=== PATIENT | male | born 1960 | race Caucasian/White ===

== ENCOUNTER → 2017-02-06 | Outpatient (CLI) | payer OTHER ==
[~2017-02-06] MED LIST: OMNIPAQUE 350 MG/ML, 100ML BOTTLE ONE
== END | disposition home or self-care (01) ==
LOC: CFH 13:53
PROVIDERS: ATTEND Physician Assistant Medical
DX: R22.1 Localized swelling, mass and lump, neck (principal)
CPT/HCPCS: 70491; 82565; Q9967

== ENCOUNTER 2020-04-07 05:32 | Outpatient (CLI) | payer OTHER ==
[2020-04-05 09:29] VITALS: BP 128/94
[2020-04-05 09:45] LABS: ALANINE AMINOTRANSFERASE 39 U/L (12-78); ALBUMIN 4.4 g/dL (3.4-5.0); ANION GAP 7 mmol/L (5-15); CHLORIDE 105 mmol/L (98-107); CREATININE 1.02 mg/dL (0.7-1.3)
[2020-04-05 09:48] LABS: ALKALINE PHOSPHATASE 60 U/L (45-117); BILIRUBIN,TOTAL 0.9 mg/dL (0.2-1.0); TOTAL PROTEIN 7.9 g/dL (6.4-8.2)
[~2020-04-07] VITALS: Ht 182.9 cm; Wt 109.0 kg
[~2020-04-07 05:32] MED LIST changes: +LOSA1TAB22 PO; -OMNIPAQUE 350 MG/ML, 100ML BOTTLE ONE
[2020-04-07] MEDS ORDERED: LACTATED RINGERS 1,000 ML IV SCH (06:34)
[2020-04-07] MEDS ORDERED: BUPIVACAINE/PF-EPI 0.5% 1:200K ONE (06:34)
[2020-04-07] MEDS ORDERED: CHLORHEXIDINE 15 ML UDC MM ONE (07:00)
[2020-04-07 07:04] VITALS: BP 128/94
[2020-04-07] MEDS ORDERED: BUPIVACAINE/PF 0.5% ONE (07:57)
== END 2020-04-07 23:59 | disposition home or self-care (01) ==
LOC: OUT 05:32 → EDSTATUS 07:30 → OUT 09:45
PROVIDERS: ATTEND Surgery
DX: R59.1 Generalized enlarged lymph nodes (principal); Z11.59 Encounter for screening for other viral diseases; Z53.8 Procedure and treatment not carried out for other reasons; I10 Essential (primary) hypertension; F17.210 Nicotine dependence, cigarettes, uncomplicated; Z98.890 Other specified postprocedural states; Z79.899 Other long term (current) drug therapy
CPT/HCPCS: 36415; 80053; J7120; U0001